=== PATIENT | female | born 1990 | race Caucasian/White ===

== ENCOUNTER 2021-05-31 23:57 | Emergency (ER) | payer OTHER ==
[~2021-05-31 23:57] MED LIST: BACLOFEN 10MG T10 MG PO; MEDROL 4MG DOSEP4 MG PO; NAPROXEN500 MG PO
[2021-06-01 01:05] LABS: BASOPHIL 0.5 % (0-2); EOSINOPHIL 1.3 % (0-5); HCT 38.8 % (37.0-47.0); LYMPHOCYTE 10.1 % (15-48); MCH 31.1 pg (25.0-31.0); MCHC 33.5 g/dL (32.0-36.0); MCV 92.8 fL (78.0-100.0); MONOCYTE 11.5 % (0-12); NEUTROPHIL 76.1 % (41-80); NRBC 0; PLT 474 K/uL (150-400); RBC 4.18 M/uL (4.20-5.40); RDW 12.8 % (11.5-14.0); WBC 18.9 K/uL (4.0-10.5)
[2021-06-01 01:17] LABS: AMPHETAMINES POSITIVE (NEGATIVE); BARBITURATES NEGATIVE (NEGATIVE); ECSTASY (MDMA) POSITIVE (NEGATIVE); MARIJUANA (THC) NEGATIVE (NEGATIVE); METHADONE NEGATIVE (NEGATIVE); OPIATES NEGATIVE (NEGATIVE); OXYCODONE POSITIVE (NEGATIVE)
[2021-06-01 01:23] LABS: BUN/CREAT RATIO (CALC) 5.1 RATIO; C-REACTIVE PROTEIN 1.1 mg/dL (<=0.90); CREATININE 0.79 mg/dL (0.51-0.95); MAGNESIUM 1.9 mg/dL (1.8-2.4); POTASSIUM 3.8 mmol/L (3.5-5.1)
[2021-06-01] MEDS ORDERED: IBUPROFEN800 MG PO (04:52)
[2021-06-01] MEDS ORDERED: VIBRAMYCIN100 MG PO (04:52)
[2021-06-01] MEDS ORDERED: NORCO 5-325 TA1 EACH PO (04:52)
[2021-06-02 22:06] LABS: CHLAMYDIA TRACHOMATIS, NAA Negative (Negative); NEISSERIA GONORRHOEAE, NAA Positive (Negative)
== END 2021-06-01 04:55 | disposition home or self-care (01) ==
LOC: FER 23:57
PROVIDERS: Emergency Medicine Emergency Medical Services
DX: N83.202 Unspecified ovarian cyst, left side (principal); R20.0 Anesthesia of skin; F17.210 Nicotine dependence, cigarettes, uncomplicated; Z88.6 Allergy status to analgesic agent; Z88.4 Allergy status to anesthetic agent
CPT/HCPCS: 36415; 73120; 80048; 80305; 83735; 85025; 85379; 86140; 87210; 87491; 87591; 96372; J0696; J1170; J1885; J2405; J7120; Q9967